=== PATIENT | male | born 1965 | race American Indian/Alaskan Native ===

== ENCOUNTER 2022-05-27 23:27 | Emergency (ER) | payer MEDICARE ==
[2022-05-27 23:42] VITALS: BP 180/100
[2022-05-28 00:24] LABS: Basophils # (Auto) 0.1 K/mm3 (0.0-0.1); Basophils % (Auto) 0.5 % (0.0-1.8); Eosinophils # (Auto) 0.2 K/mm3 (0.0-0.4); Eosinophils % (Auto) 1.5 % (0.0-4.3); Hematocrit 44.4 % (35.5-45.6); Hemoglobin 14.7 gm/dl (11.8-15.2); Lymphocytes # (Auto) 2.8 K/mm3 (1.2-5.4); Lymphocytes % (Auto) 23.8 % (13.4-35.0); Mean Corpuscular HGB Conc 33 % (32-34); Mean Corpuscular Volume 86 fl (84-94); Monocytes # (Auto) 0.9 K/mm3 (0.0-0.8); Monocytes % (Auto) 7.7 % (0.0-7.3); Platelet Count 241 K/mm3 (140-440); Red Blood Count 5.19 M/mm3 (3.65-5.03); Red Cell Distribution Width 15.9 % (13.2-15.2)
--- NOTE | 2022-05-28 00:27 | XRay Report ---
CHEST 2 VIEWS INDICATION / CLINICAL INFORMATION: CHEST PAIN. COMPARISON: Chest x-ray 12/06/2020 FINDINGS: SUPPORT DEVICES: None. HEART / MEDIASTINUM: Heart size and mediastinal contour appear within normal limits. LUNGS / PLEURA: Nonspecific minimal perihilar interstitial stranding with slightly more focal opaciti es in the left lower lung. No pneumothorax. BONES: No significant osseous abnormality. ADDITIONAL FINDINGS: No significant additional findings. IMPRESSION: 1. Overall appearance of the chest suggests minimal change comparison. Similar appearance of opacitie s within the lower left lung may reflect sequelae of infection, scarring, or atelectasis. Signer Name: Deacon Valdivia II, MD Signed: 05/28/2022 12:23 AM Workstation Name: [id number]
[2022-05-28 00:45] LABS: Alanine Aminotransferase 13 units/L (7-56); BUN/Creatinine Ratio 11; Blood Urea Nitrogen 17 mg/dL (9-20); Calcium 9.6 mg/dL (8.4-10.2); Hemolysis Index 4
--- NOTE | 2022-05-28 03:38 | Emergency Department Report ---
ED Chest Pain HPI - General Chief Complaint: Chest Pain Stated Complaint: CHEST PAIN Source: patient Mode of arrival: Ambulatory Limitations: No Limitations - History of Present Illness Initial Comments: Patient 57-year-old male with history of hypertension, diabetes, CHF, [place], stent placement who presents for chest pain lower sternal radiating to left arm x30 minutes. Patient states history of [place] x2 stents x2 and CHF. Patient does endorse cough that is productive clear. Has been no nausea no vomiting no diaphoresis. No shortness of breath. Patient is followed by cardiology patient has associated history. Patient denies PND there is no bilateral lower extremity swelling patient states adherence with medications. Patient is COVID vaccinated. MD Complaint: chest pain - Related Data Home Medications Medication Instructions Recorded Confirmed Last Taken Clopidogrel Bisulfate [Plavix] 75 mg PO DAILY 10/22/18 10/22/18 Unknown Famotidine [Pepcid] 20 mg PO BID 10/22/18 10/22/18 Unknown ISOSORBIDE MONOnitrate [Imdur ER] 60 mg PO BID 10/22/18 10/22/18 Unknown Lopressor TAB 50 mg PO BID 10/22/18 10/22/18 Unknown Nitrostat 0.4 mg SL Q5MIN PRN 10/22/18 10/22/18 Unknown Zocor TAB 40 mg PO DAILY 10/22/18 10/22/18 Unknown Previous Rx's Medication Instructions Recorded Last Taken Type Aspirin 325 mg PO QDAY #30 tablet 10/29/16 10/21/18 18:00 Rx 81 Aspirin EC [Halfprin EC] 81 mg PO QDAY #30 tablet. 08/25/19 Unknown Rx Furosemide [Lasix TAB] 80 mg PO 0600,1800 #120 tablet 08/25/19 Unknown Rx Metoprolol [Lopressor TAB] 25 mg PO BID #60 tablet 08/25/19 Unknown Rx Rosuvastatin Calcium [Crestor] 40 mg PO DAILY #30 tablet 08/25/19 Unknown Rx Spironolactone [Aldactone] 25 mg PO QDAY #30 tablet 08/25/19 Unknown Rx lisinopriL [Zestril TAB] 5 mg PO QDAY #30 tablet 08/25/19 Unknown Rx Azithromycin 500 mg PO DAILY 5 Days #5 tab 05/28/22 Unknown Rx Allergies Allergy/AdvReac Type Severity Reaction Status Date / Time No Known Allergies Allergy Unverified 01/30/22 09:48 Heart Score - HEART Score History: Slightly suspicious EKG: Normal Age: 45-65 Risk factors: 1-2 risk factors Troponin: < normal limit HEART Score: 2 - EKG Read Time Time EKG Completed: 23:36 (6) EKG Read Time: 23:37 ED Review of Systems ROS: Stated complaint: CHEST PAIN Other details as noted in HPI Constitutional: denies: chills, fever Eyes: denies: eye pain, eye discharge, vision change ENT: denies: ear pain, throat pain Respiratory: cough. denies: orthopnea, shortness of breath, stridor, wheezing Cardiovascular: chest pain. denies: palpitations, dyspnea on exertion, orthopnea, paroxysmal nocturnal dyspnea Endocrine: no symptoms reported Gastrointestinal: denies: abdominal pain, nausea, vomiting, diarrhea Genitourinary: denies: urgency, dysuria Musculoskeletal: denies: back pain, joint swelling, arthralgia Skin: denies: rash, lesions Neurological: denies: headache, weakness, paresthesias, vertigo Psychiatric: as per HPI Hematological/Lymphatic: denies: easy bleeding, easy bruising ED Past Medical Hx - Past Medical History Hx Hypertension: Yes Hx Heart Attack/AMI: Yes Hx Congestive Heart Failure: Yes Hx Diabetes: No Hx Asthma: Yes Hx COPD: No - Surgical History Hx Coronary Stent: Yes Additional Surgical History: Stents - Social History Smoking Status: Current Every Day Smoker - Medications Home Medications: Home Medications Medication Instructions Recorded Confirmed Last Taken Type Aspirin 325 mg PO QDAY #30 tablet 10/29/16 10/22/18 10/21/18 18:00 Rx 81 Clopidogrel Bisulfate [Plavix] 75 mg PO DAILY 10/22/18 10/22/18 Unknown History Famotidine [Pepcid] 20 mg PO BID 10/22/18 10/22/18 Unknown History ISOSORBIDE MONOnitrate [Imdur ER] 60 mg PO BID 10/22/18 10/22/18 Unknown History Lopressor TAB 50 mg PO BID 10/22/18 10/22/18 Unknown History Nitrostat 0.4 mg SL Q5MIN PRN 10/22/18 10/22/18 Unknown History Zocor TAB 40 mg PO DAILY 10/22/18 10/22/18 Unknown History Aspirin EC [Halfprin EC] 81 mg PO QDAY #30 tablet.dr 08/25/19 Unknown Rx Furosemide [Lasix TAB] 80 mg PO 0600,1800 #120 tablet 08/25/19 Unknown Rx Metoprolol [Lopressor TAB] 25 mg PO BID #60 tablet 08/25/19 Unknown Rx Rosuvastatin Calcium [Crestor] 40 mg PO DAILY #30 tablet 08/25/19 Unknown Rx Spironolactone [Aldactone] 25 mg PO QDAY #30 tablet 08/25/19 Unknown Rx lisinopriL [Zestril TAB] 5 mg PO QDAY #30 tablet 08/25/19 Unknown Rx Azithromycin 500 mg PO DAILY 5 Days #5 tab 05/28/22 Unknown Rx ED Physical Exam - General Limitations: No Limitations General appearance: alert - Head Head exam: Present: normocephalic, normal inspection - Eye Eye exam: Present: PERRL, EOMI Pupils: Present: normal accommodation - ENT ENT exam: Present: mucous membranes moist - Neck Neck exam: Present: normal inspection, full ROM. Absent: tenderness, lymphadenopathy - Respiratory Respiratory exam: Present: normal lung sounds bilaterally, chest wall tenderness (Left lateral anterior chest wall tenderness no crepitus no ecchymosis no step- off lung sounds are clear.). Absent: respiratory distress, wheezes, stridor - Cardiovascular Cardiovascular Exam: Present: regular rate, normal rhythm, normal heart sounds - GI/Abdominal GI/Abdominal exam: Present: soft, normal bowel sounds. Absent: distended, tenderness, guarding, rebound, rigid, bruit, hernia - Rectal Rectal exam: Present: deferred - Extremities Exam Extremities exam: Present: normal inspection, full ROM, normal capillary refill. Absent: pedal edema - Back Exam Back exam: Present: normal inspection, full ROM. Absent: CVA tenderness (R), CVA tenderness (L) - Neurological Exam Neurological exam: Present: alert, oriented X3, CN II-XII intact, normal gait - Expanded Neurological Exam Expanded Patient oriented to: Present: person, place, time Speech: Present: fluid speech Motor strength exam: RUE: 5, LUE: 5, RLE: 5, LLE: 5 Best Eye Response ([place]): (4) open spontaneously Best Motor Response ([place]): (6) obeys commands Best Verbal Response ([place]): (5) oriented Ty Total: 15 - Psychiatric Psychiatric exam: Present: normal affect, normal mood - Skin Skin exam: Present: warm, dry, intact, normal color. Absent: rash ED Course Vital Signs 05/27/22 23:31 Temperature 98.0 F Pulse Rate 102 H Respiratory 18 Rate Blood Pressure 180/100 O2 Sat by Pulse 97 Oximetry VINCE score - Vince Score Age > 65: (0) No Aspirin use within the Past 7 Days: (1) Yes 3 or more CAD Risk Factors: (1) Yes 2 or more Angina events in past 24 hrs: (0) No Known CAD with more than 50% Stenosis: (0) No Elevated Cardiac Markers: (0) No ST Deviation Greater than 0.5mm: (0) No VINCE Score: 2 ED Medical Decision Making - Lab Data Result diagrams: 05/27/22 23:56 05/27/22 23:56 Labs 05/27/22 05/27/22 23:56 23:56 WBC 11.9 H RBC 5.19 H Hgb 14.7 Hct 44.4 MCV 86 MCH 28 MCHC 33 RDW 15.9 H Plt Count 241 Lymph % (Auto) 23.8 [place] % (Auto) 7.7 H Eos % (Auto) 1.5 Baso % (Auto) 0.5 Lymph # (Auto) 2.8 [place] # (Auto) 0.9 H Eos # (Auto) 0.2 Baso # (Auto) 0.1 Seg Neutrophils % 66.5 Seg Neutrophils # 7.9 H Sodium 141 Potassium 4.1 Chloride 104.5 Carbon Dioxide 24 Anion Gap 17 BUN 17 Creatinine 1.5 H Estimated GFR 58 BUN/Creatinine Ratio 11 Glucose 114 H Calcium 9.6 Total Bilirubin 0.20 AST 20 ALT 13 Alkaline Phosphatase 74 Troponin T < 0.010 Total Protein 7.2 Albumin 4.0 Albumin/Globulin Ratio 1.3 Labs 05/27/22 05/27/22 05/28/22 23:56 23:56 03:05 WBC 11.9 H RBC 5.19 H Hgb 14.7 Hct 44.4 MCV 86 MCH 28 MCHC 33 RDW 15.9 H Plt Count 241 Lymph % (Auto) 23.8 [place] % (Auto) 7.7 H Eos % (Auto) 1.5 Baso % (Auto) 0.5 Lymph # (Auto) 2.8 [place] # (Auto) 0.9 H Eos # (Auto) 0.2 Baso # (Auto) 0.1 Seg Neutrophils % 66.5 Seg Neutrophils # 7.9 H Sodium 141 Potassium 4.1 Chloride 104.5 Carbon Dioxide 24 Anion Gap 17 BUN 17 Creatinine 1.5 H Estimated GFR 58 BUN/Creatinine Ratio 11 Glucose 114 H Calcium 9.6 Total Bilirubin 0.20 AST 20 ALT 13 Alkaline Phosphatase 74 Troponin T < 0.010 0.012 Total Protein 7.2 Albumin 4.0 Albumin/Globulin Ratio 1.3 - EKG Data EKG shows normal: sinus rhythm, axis, intervals, QRS complexes Rate: normal - Radiology Data Radiology results: report reviewed, image reviewed CHEST 2 VIEWS INDICATION / CLINICAL INFORMATION: CHEST PAIN. COMPARISON: Chest x-ray 12/06/2020 FINDINGS: SUPPORT DEVICES: None. HEART / MEDIASTINUM: Heart size and mediastinal contour appear within normal limits. LUNGS / PLEURA: Nonspecific minimal perihilar interstitial stranding with slightly more focal opacities in the left lower lung. No pneumothorax. BONES: No significant osseous abnormality. ADDITIONAL FINDINGS: No significant additional findings. IMPRESSION: 1. Overall appearance of the chest suggests minimal change comparison. Similar appearance of opacities within the lower left lung may reflect sequelae of infection, scarring, or atelectasis. Signer Name: Devin Valdivia II, MD Signed: 05/28/2022 12:23 AM Workstation Name: [id number] Transcribed By: LAQUITA Dictated By: DEVIN VALDIVIA II, MD Electronically Authenticated By: DEVIN VALDIVIA II, MD Signed Date/Time: 05/28/2222 DD/ TD/TT: - Medical Decision Making Heart score is 2, VINCE score is 2, bilateral small opacities, EKG sinus rhythm old anterior infarct, no ST elevated [place] interpreted by ED attending. Pain is improved with medications given in ED. Plan cover for possible CAP, DC to home, take medications as prescribed, continue all medications as prescribed, follow- up with your primary care doctor in 2 to 3 days. 0555 patient now eloped prior to discharge. Critical care attestation.: If time is entered above; I have spent that time in minutes in the direct care of this critically ill patient, excluding procedure time. ED Disposition Clinical Impression: Chest pain Qualifiers: Chest pain type: unspecified Qualified Code(s): R07.9 - Chest pain, unspecified Disposition: HOME / SELF CARE / HOMELESS Is pt being admited?: No Does the pt Need Aspirin: No Condition: Stable Instructions: Nonspecific Chest Pain, Adult Additional Instructions: Take medications as prescribed, follow-up with your primary care doctor in 2 to 3 days. Return to emergency department should symptoms worsen. Prescriptions: Azithromycin 500 mg PO DAILY 5 Days #5 tab Referrals: [facility] [Other] - 3-5 Days MIK BILL MD [Staff Physician] - 3-5 Days TALI MEYERS MD [Staff Physician] - 3-5 Days Forms: Work/School Release Form(ED) Time of Disposition: 05:57
[2022-05-28] MEDS ORDERED: ACETAMINOPHEN 500 MG TAB PO ONE (04:03)
--- NOTE | 2022-05-28 18:56 | Electrocardiograph Report ---
[facility] Test Date: 2022-05-27 Test Time: 23:36:46 Pat Name: DEVIN WOODWARD Department: Room: Gender: M [employer] Metal: MARY JO : 1965 Requested By: MAXIMILIANO FORMAN Order Number: [id number] Reading MD: Mita Belcher Measurements Intervals [place] Rate: 93 P: 60 DE: 130 QRS: 66 QRSD: 113 T: 263 QT: 365 QTc: 455 Interpretive Statements Sinus rhythm Borderline inferior Q waves Nonspecific T abnormalities, lateral leads No previous ECG available for comparison Electronically Signed On 05-28-2022 18:56:17 EDT by Mita Belcher
== END 2022-05-28 06:20 | disposition home or self-care (01) ==
LOC: ED 23:27
DX: R07.9 Chest pain, unspecified (principal); I11.0 Hypertensive heart disease with heart failure; I50.9 Heart failure, unspecified; I21.9 Acute myocardial infarction, unspecified; J45.909 Unspecified asthma, uncomplicated; F17.200 Nicotine dependence, unspecified, uncomplicated; Z79.899 Other long term (current) drug therapy
CPT/HCPCS: 36415; 71046; 80053; 84484; 85025; 93005; 99284